=== PATIENT | male | born 1965 | race Caucasian/White ===

== ENCOUNTER 2017-08-13 22:12 | Inpatient (IN) | payer MEDICARE, MEDICAID ==
[~2017-08-13] VITALS: Ht 175.3 cm; Wt 85.7 kg
[2017-08-13 22:23] LABS: GLUCOSE,POINT OF CARE 93 MG/DL (70-110)
[2017-08-13] MEDS ORDERED: DULO60CA63 PO (22:30)
[2017-08-13] MEDS ORDERED: DULO30CA51 PO (22:30)
[2017-08-13] MEDS ORDERED: ARIP20TA10 PO (22:30)
[2017-08-13] MEDS ORDERED: BUSP10TA3 PO (22:30)
[2017-08-13] MEDS ORDERED: CARV12.530 PO (22:30)
[2017-08-13 23:04] LABS: BASOPHILS % (AUTO) 0.4 % (0.0-2.0); EOSINOPHILS % (AUTO) 3.4 % (1.0-6.0); HEMOGLOBIN 15.1 g/dL (13.5-17.5); LYMPHOCYTES # (AUTO) 2.9 K/uL (1.0-4.8); MEAN CORPUSCULAR VOLUME 94 fL (80-100); MONOCYTES # (AUTO) 0.7 K/uL (0.1-1.0); MONOCYTES % (AUTO) 8.2 % (2.0-9.0); NEUTROPHILS # (AUTO) 4.2 K/uL (1.8-7.7); PLATELET COUNT (AUTO) 183 K/uL (150-450); RED BLOOD CELL COUNT(AUTO) 4.56 MIL/uL (4.50-5.90); RED CELL DISTRIBUTION WIDTH 13.3 % (11.5-14.5)
[2017-08-13] MEDS ORDERED: HALOPERIDOL 5 MG TABLET PO PRN (23:15)
[2017-08-13] MEDS ORDERED: DiphenhydrAMINE HCL 25 MG CAPSULE PO ONE (23:15)
[2017-08-13] MEDS ORDERED: LORazepam 1 MG TABLET PO ONE (23:15)
[2017-08-13] MEDS ORDERED: HALOPERIDOL 5 MG TABLET PO ONE (23:15)
[2017-08-13 23:20] LABS: ANION GAP 10 mmol/L (8-16); CARBON DIOXIDE 26 mmol/L (22-29); CHLORIDE 102 mmol/L (98-107); CREATININE 0.71 mg/dL (0.60-1.30); GLOMERULAR FILTR. RATE CALC > 60 mL/min (>60); GLUCOSE,RANDOM 103 mg/dL (70-110); POTASSIUM 3.8 mmol/L (3.5-5.1); SODIUM SERUM 138 mmol/L (136-145); UREA NITROGEN, BLOOD 11 mg/dL (7-18)
[2017-08-13 23:26] LABS: ALANINE AMINOTRANSFERASE 23 U/L (12-78); ALBUMIN 3.8 g/dL (3.4-5.0); ALKALINE PHOSPHATASE 95 U/L (46-116); ASPARTATE AMINOTRANSFERASE 14 U/L (15-37); BILIRUBIN,TOTAL 0.3 mg/dL (0.1-1.0); TOTAL PROTEIN, SERUM 7.5 g/dL (6.4-8.2)
[2017-08-13 23:27] LABS: AMPHET/METH SCREEN,URINE NEGATIVE (NEGATIVE); BARBITURATE SCREEN, URINE NEGATIVE (NEGATIVE); BENZODIAZEPINES SCREEN,URINE NEGATIVE (NEGATIVE); CANNABINOID SCREEN,URINE NEGATIVE (NEGATIVE); COCAINE SCREEN,URINE NEGATIVE (NEGATIVE); METHADONE SCREEN, URINE NEGATIVE (NEGATIVE); OPIATE SCREEN,URINE NEGATIVE (NEGATIVE)
[2017-08-13 23:30] LABS: PHENCYCLIDINE SCREEN,URINE NEGATIVE (NEGATIVE)
[2017-08-14 00:11] LABS: APPEARANCE,URINE CLEAR (CLEAR); BILIRUBIN,URINE NEGATIVE (NEGATIVE); GLUCOSE, URINE (UA) NEGATIVE (NEGATIVE); KETONES,URINE NEGATIVE (NEGATIVE); LEUKOCYTE ESTERASE ,URINE NEGATIVE (NEGATIVE); NITRATE,URINE NEGATIVE (NEGATIVE); OCCULT BLOOD,URINE NEGATIVE (NEGATIVE); PH,URINE 6.5 (5.0-8.0); PROTEIN,URINE NEGATIVE (NEGATIVE)
[2017-08-14 00:19] LABS: CHOL/HDL RATIO 3.3 (4.2-7.3); CHOLESTEROL 154 mg/dL (131-200); HDL CHOLESTEROL 47 mg/dL (40-60); LDL CHOL (CALC.) 80 mg/dL (0-130); TRIGLYCERIDES 137 mg/dL (15-150)
[2017-08-14 00:41] LABS: THYROID STIMULATING HORMONE 3.56 uIU/mL (0.36-3.74)
[2017-08-14 01:09] LABS: INFLUENZA TYPE A NEGATIVE FOR TYPE A (NEGATIVE); INFLUENZA TYPE B NEGATIVE FOR TYPE B (NEGATIVE)
[2017-08-14 03:21] VITALS: BP 120/80
[2017-08-14] MEDS: LORazepam 2 MG TABLET PO PRN ×2 (03:37→10:00)
[2017-08-14] MEDS: ZOLPIDEM TARTRATE 10 MG TABLET PO PRN (03:37)
[2017-08-14] MEDS ORDERED: INFLUENZA VIRUS VACCINE QVS 2017-18 (3YR+)/PF 60 MCG/0.5 ML SYRINGE IM ONE (06:15)
[2017-08-14] MEDS ORDERED: PNEUMOCOCCAL VACCINE POLYVALENT 0.5 ML VIAL [PPSV23] IM ONE (06:15)
[2017-08-14 09:42] VITALS: BP 127/65
[2017-08-14] MEDS ORDERED: PETROLATUM,WHITE 71 GM JELLY TP PRN (09:45)
[2017-08-14] MEDS ORDERED: BENZOCAINE/MENTHOL LOZENGE MM PRN (09:45)
[2017-08-14] MEDS ORDERED: MAGNESIUM HYDROXIDE SUSPENSION 30 ML UDCUP PO PRN (09:45)
[2017-08-14] MEDS ORDERED: BACITRACIN 28.4 GM OINTMENT TP PRN (09:45)
[2017-08-14] MEDS ORDERED: CloNIDine HCL 0.1 MG TABLET PO PRN (09:45)
[2017-08-14] MEDS ORDERED: ACETAMINOPHEN 325 MG TABLET PO PRN (09:45)
[2017-08-14] MEDS ORDERED: MAG HYDROX/AL HYDROX/SIMETH ES 30 ML SUSPENSION UDCUP PO PRN (09:45)
[2017-08-14] MEDS ORDERED: ALBUTEROL SULFATE HFA 90 MCG/PUFF 8 GM INHALER IH PRN (09:45)
[2017-08-14] MEDS ORDERED: LOPERAMIDE HCL 2 MG CAPSULE PO PRN (09:45)
[2017-08-14] MEDS ORDERED: ONDANSETRON HCL 4 MG TABLET PO PRN (09:45)
[2017-08-14] MEDS: ARIPiprazole 10 MG TABLET PO SCH (15:24)
[2017-08-14] MEDS: DULoxetine HCL 60 MG CAPSULE PO SCH (15:48)
[2017-08-14] MEDS: CARVEDILOL 3.125 MG TABLET PO SCH (16:34)
[2017-08-14] MEDS: BusPIRone HCL 10 MG TABLET PO SCH (16:34)
[2017-08-14 16:41] VITALS: BP 130/79
[2017-08-15 04:51] VITALS: BP 103/73
[2017-08-15] MEDS: IBUPROFEN 600 MG TABLET PO PRN (04:54)
[2017-08-15 05:34] VITALS: BP 121/75
[2017-08-15] MEDS: LORazepam 2 MG TABLET PO PRN ×2 (05:43→16:41)
[2017-08-15] MEDS: ARIPiprazole 10 MG TABLET PO SCH (08:25)
[2017-08-15] MEDS: DULoxetine HCL 60 MG CAPSULE PO SCH (08:25)
[2017-08-15] MEDS: BusPIRone HCL 10 MG TABLET PO SCH ×3 (08:25→16:40)
[2017-08-15] MEDS: CARVEDILOL 3.125 MG TABLET PO SCH ×2 (08:25→16:41)
[2017-08-15 08:34] VITALS: BP 101/72
[2017-08-15] MEDS: NICOTINE 21 MG/24 HOUR PATCH TD SCH (10:59)
[2017-08-15 16:18] VITALS: BP 113/72
[2017-08-15] MEDS: ZOLPIDEM TARTRATE 10 MG TABLET PO PRN (21:40)
[2017-08-16 00:20] VITALS: BP 109/80
[2017-08-16] MEDS: LORazepam 2 MG TABLET PO PRN ×2 (02:24→16:38)
[2017-08-16 05:47] VITALS: BP 126/85
[2017-08-16] MEDS: IBUPROFEN 600 MG TABLET PO PRN ×3 (06:05→16:38)
[2017-08-16] MEDS: DULoxetine HCL 60 MG CAPSULE PO SCH (08:06)
[2017-08-16] MEDS: BusPIRone HCL 10 MG TABLET PO SCH ×3 (08:06→16:13)
[2017-08-16] MEDS: ARIPiprazole 10 MG TABLET PO SCH (08:06)
[2017-08-16] MEDS: NICOTINE 21 MG/24 HOUR PATCH TD SCH (08:06)
[2017-08-16] MEDS: CARVEDILOL 3.125 MG TABLET PO SCH ×2 (08:06→16:13)
[2017-08-16 09:28] VITALS: BP 118/73
[2017-08-16 16:19] VITALS: BP 114/72
[2017-08-17 00:10] VITALS: BP 109/69
[2017-08-17] MEDS: LORazepam 2 MG TABLET PO PRN ×2 (05:41→15:11)
[2017-08-17] MEDS: IBUPROFEN 600 MG TABLET PO PRN ×2 (06:13→15:11)
[2017-08-17 08:41] VITALS: BP 126/57
[2017-08-17] MEDS: DULoxetine HCL 60 MG CAPSULE PO SCH (08:41)
[2017-08-17] MEDS: CARVEDILOL 3.125 MG TABLET PO SCH ×2 (08:41→16:55)
[2017-08-17] MEDS: ARIPiprazole 10 MG TABLET PO SCH (08:41)
[2017-08-17] MEDS: NICOTINE 21 MG/24 HOUR PATCH TD SCH (08:41)
[2017-08-17] MEDS: BusPIRone HCL 10 MG TABLET PO SCH ×3 (08:41→16:55)
[2017-08-17 15:11] VITALS: BP 119/72
[2017-08-17 16:13] VITALS: BP 119/77
[2017-08-17] MEDS: ZOLPIDEM TARTRATE 10 MG TABLET PO PRN (22:06)
[2017-08-18] MEDS: IBUPROFEN 600 MG TABLET PO PRN ×2 (02:05→10:36)
[2017-08-18 02:06] VITALS: BP 134/79
[2017-08-18 03:06] VITALS: BP 134/79
[2017-08-18] MEDS: LORazepam 2 MG TABLET PO PRN (08:37)
[2017-08-18] MEDS: BusPIRone HCL 10 MG TABLET PO SCH ×2 (08:37→12:26)
[2017-08-18] MEDS: ARIPiprazole 10 MG TABLET PO SCH (08:37)
[2017-08-18] MEDS: CARVEDILOL 3.125 MG TABLET PO SCH (08:37)
[2017-08-18] MEDS: DULoxetine HCL 60 MG CAPSULE PO SCH (08:37)
[2017-08-18] MEDS: NICOTINE 21 MG/24 HOUR PATCH TD SCH (08:38)
[2017-08-18 08:51] VITALS: BP 125/73
[2017-08-18] MEDS ORDERED: BUSP10TA23 PO (12:19)
[2017-08-18] MEDS ORDERED: ARIP10TA8 PO (12:19)
[2017-08-18] MEDS ORDERED: DULO60CA44 PO (12:19)
[2017-08-18] MEDS ORDERED: CARV3 PO (12:19)
== END 2017-08-18 13:30 | disposition home or self-care (01) | DRG 885 ==
LOC: EMS 22:15 → B2S 23:35
PROC: 3E0234Z Introduction of Serum, Toxoid and Vaccine into Muscle, Percutaneous Approach (ICD-10-PCS; principal; 2017-08-14)
DX: F25.1 Schizoaffective disorder, depressive type (principal); R45.851 Suicidal ideations; Z91.14 Patient's other noncompliance with medication regimen; F17.200 Nicotine dependence, unspecified, uncomplicated; F32.9 Major depressive disorder, single episode, unspecified; F41.9 Anxiety disorder, unspecified; G47.00 Insomnia, unspecified; I10 Essential (primary) hypertension; J44.9 Chronic obstructive pulmonary disease, unspecified; K21.9 Gastro-esophageal reflux disease without esophagitis; M19.90 Unspecified osteoarthritis, unspecified site; Z90.49 Acquired absence of other specified parts of digestive tract; Z88.0 Allergy status to penicillin; Z79.899 Other long term (current) drug therapy; Z23 Encounter for immunization
CPT/HCPCS: 82962; 84443; 87804; 90471; 99285; G0480

== ENCOUNTER 2017-08-28 11:18 | Inpatient (IN) | payer MEDICARE, MEDICAID ==
[~2017-08-28] VITALS: Ht 175.3 cm; Wt 89.4 kg
[~2017-08-28 11:18] MED LIST: ARIP10TA8 PO; BUSP10TA23 PO; CARV3 PO; DULO60CA44 PO
[2017-08-28] MEDS: BusPIRone HCL 10 MG TABLET PO SCH ×2 (13:00→17:13)
[2017-08-28 13:07] VITALS: BP 130/77
[2017-08-28] MEDS: HALOPERIDOL 5 MG TABLET PO PRN ×2 (13:36→18:52)
[2017-08-28 16:00] VITALS: BP 134/67
[2017-08-28] MEDS: LORazepam 2 MG TABLET PO PRN (17:13)
[2017-08-29 06:34] VITALS: BP 135/78
[2017-08-29 08:00] VITALS: BP 133/65
[2017-08-29 08:21] LABS: BASOPHILS # (AUTO) 0.03 K/uL (0.00-0.20); BASOPHILS % (AUTO) 0.4 % (0.0-2.0); EOSINOPHILS # (AUTO) 0.17 K/uL (0.00-0.70); EOSINOPHILS % (AUTO) 2.09 % (1.0-6.0); HEMATOCRIT 44.8 % (41-53); HEMOGLOBIN 14.9 g/dL (13.5-17.5); LYMPHOCYTES # (AUTO) 2.2 K/uL (1.0-4.8); LYMPHOCYTES % (AUTO) 27.5 % (22.0-44.0); MEAN CORPUSCULAR HEMOGLOBIN 32.3 pg (26.0-34.0); MEAN CORPUSCULAR HGB CONC 33.4 G/dL (31.0-37.0); MEAN CORPUSCULAR VOLUME 97 fL (80-100); MONOCYTES # (AUTO) 0.6 K/uL (0.1-1.0); MONOCYTES % (AUTO) 7.2 % (2.0-9.0); NEUTROPHILS # (AUTO) 5.1 K/uL (1.8-7.7); NEUTROPHILS % (AUTO) 62.9 % (40.0-70.0); PLATELET COUNT (AUTO) 197 K/uL (150-450); RED BLOOD CELL COUNT(AUTO) 4.63 MIL/uL (4.50-5.90); RED CELL DISTRIBUTION WIDTH 13.6 % (11.5-14.5)
[2017-08-29 09:17] LABS: ALANINE AMINOTRANSFERASE 27 U/L (12-78); ALBUMIN 3.7 g/dL (3.4-5.0); ALKALINE PHOSPHATASE 95 U/L (46-116); ANION GAP 7 mmol/L (8-16); ASPARTATE AMINOTRANSFERASE 15 U/L (15-37); BILIRUBIN,TOTAL 0.4 mg/dL (0.1-1.0); CALCIUM, TOTAL 8.9 mg/dL (8.8-10.5); CARBON DIOXIDE 30 mmol/L (22-29); CHLORIDE 100 mmol/L (98-107); CHOL/HDL RATIO 3.3 (4.2-7.3); CHOLESTEROL 189 mg/dL (131-200); CREATININE 0.67 mg/dL (0.60-1.30); FREE T4 (FREE THYROXINE) 0.67 ng/dL (0.76-1.46); GLOMERULAR FILTR. RATE CALC > 60 mL/min (>60); GLUCOSE,RANDOM 99 mg/dL (70-110); HDL CHOLESTEROL 57 mg/dL (40-60); LDL CHOL (CALC.) 102 mg/dL (0-130); SODIUM SERUM 137 mmol/L (136-145); THYROID STIMULATING HORMONE 0.86 uIU/mL (0.36-3.74); TOTAL PROTEIN, SERUM 7.6 g/dL (6.4-8.2); TRIGLYCERIDES 152 mg/dL (15-150); UREA NITROGEN, BLOOD 16 mg/dL (7-18)
[2017-08-29 10:08] LABS: HEMOGLOBIN A1C 5.4 % (4.5-6.2)
[2017-08-29] MEDS: DULoxetine HCL 60 MG CAPSULE PO SCH (10:09)
[2017-08-29] MEDS: BusPIRone HCL 10 MG TABLET PO SCH ×3 (10:09→16:48)
[2017-08-29] MEDS: HALOPERIDOL 5 MG TABLET PO PRN ×2 (10:09→16:48)
[2017-08-29] MEDS: LORazepam 2 MG TABLET PO PRN ×2 (10:09→16:48)
[2017-08-29] MEDS: ARIPiprazole 10 MG TABLET PO SCH (10:09)
[2017-08-29] MEDS ORDERED: ALBUTEROL SULFATE HFA 90 MCG/PUFF 8 GM INHALER IH PRN (10:15)
[2017-08-29] MEDS ORDERED: ACETAMINOPHEN 325 MG TABLET PO PRN (10:15)
[2017-08-29] MEDS ORDERED: ONDANSETRON HCL 4 MG TABLET PO PRN (10:15)
[2017-08-29] MEDS ORDERED: LOPERAMIDE HCL 2 MG CAPSULE PO PRN (10:15)
[2017-08-29] MEDS ORDERED: CloNIDine HCL 0.1 MG TABLET PO PRN (10:15)
[2017-08-29] MEDS ORDERED: MAGNESIUM HYDROXIDE SUSPENSION 30 ML UDCUP PO PRN (10:15)
[2017-08-29] MEDS ORDERED: BACITRACIN 28.4 GM OINTMENT TP PRN (10:15)
[2017-08-29] MEDS ORDERED: BENZOCAINE/MENTHOL LOZENGE MM PRN (10:15)
[2017-08-29] MEDS ORDERED: PETROLATUM,WHITE 71 GM JELLY TP PRN (10:15)
[2017-08-29] MEDS ORDERED: MAG HYDROX/AL HYDROX/SIMETH ES 30 ML SUSPENSION UDCUP PO PRN (10:15)
[2017-08-29] MEDS: NICOTINE 21 MG/24 HOUR PATCH TD SCH (10:57)
[2017-08-29] MEDS: CARVEDILOL 3.125 MG TABLET PO SCH ×2 (10:58→16:48)
[2017-08-29 16:18] VITALS: BP 126/64
[2017-08-29] MEDS: HYDROCORTISONE 0.5% 30 GM CREAM TP SCH (16:49)
[2017-08-29] MEDS: ZOLPIDEM TARTRATE 10 MG TABLET PO PRN (20:27)
[2017-08-30 01:02] VITALS: BP 130/79
[2017-08-30] MEDS: HALOPERIDOL 5 MG TABLET PO PRN ×2 (03:36→09:01)
[2017-08-30] MEDS: LORazepam 2 MG TABLET PO PRN ×3 (04:34→21:35)
[2017-08-30 08:00] VITALS: BP 116/69
[2017-08-30] MEDS: HYDROCORTISONE 0.5% 30 GM CREAM TP SCH ×2 (08:27→16:04)
[2017-08-30] MEDS: DULoxetine HCL 60 MG CAPSULE PO SCH (08:27)
[2017-08-30] MEDS: OMEGA-3/DHA/EPA/FISH OIL 1,000 MG CAPSULE PO SCH (08:27)
[2017-08-30] MEDS: CARVEDILOL 3.125 MG TABLET PO SCH ×2 (08:27→16:03)
[2017-08-30] MEDS: BusPIRone HCL 10 MG TABLET PO SCH ×3 (08:27→16:03)
[2017-08-30] MEDS: ARIPiprazole 10 MG TABLET PO SCH (08:27)
[2017-08-30] MEDS: NICOTINE 21 MG/24 HOUR PATCH TD SCH (08:27)
[2017-08-30 16:34] VITALS: BP 116/73
[2017-08-30] MEDS: ZOLPIDEM TARTRATE 10 MG TABLET PO PRN (21:31)
[2017-08-31 03:15] VITALS: BP 109/65
[2017-08-31] MEDS: HALOPERIDOL 5 MG TABLET PO PRN ×3 (03:17→17:39)
[2017-08-31] MEDS: LORazepam 2 MG TABLET PO PRN ×2 (03:17→16:38)
[2017-08-31 03:56] VITALS: BP 115/79
[2017-08-31] MEDS: IBUPROFEN 600 MG TABLET PO PRN (03:58)
[2017-08-31 08:08] VITALS: BP 128/68
[2017-08-31] MEDS: OMEGA-3/DHA/EPA/FISH OIL 1,000 MG CAPSULE PO SCH (09:14)
[2017-08-31] MEDS: BusPIRone HCL 10 MG TABLET PO SCH ×3 (09:14→16:38)
[2017-08-31] MEDS: ARIPiprazole 10 MG TABLET PO SCH (09:14)
[2017-08-31] MEDS: CARVEDILOL 3.125 MG TABLET PO SCH ×2 (09:14→16:38)
[2017-08-31] MEDS: DULoxetine HCL 60 MG CAPSULE PO SCH (09:14)
[2017-08-31] MEDS: NICOTINE 21 MG/24 HOUR PATCH TD SCH (09:16)
[2017-08-31] MEDS: HYDROCORTISONE 0.5% 30 GM CREAM TP SCH ×2 (09:17→16:38)
[2017-08-31 16:00] VITALS: BP 126/72
[2017-08-31] MEDS: ZOLPIDEM TARTRATE 10 MG TABLET PO PRN (20:29)
[2017-09-01] MEDS: HALOPERIDOL 5 MG TABLET PO PRN ×3 (00:36→16:32)
[2017-09-01] MEDS: LORazepam 2 MG TABLET PO PRN ×3 (00:36→16:32)
[2017-09-01] MEDS: IBUPROFEN 600 MG TABLET PO PRN ×2 (00:37→09:11)
[2017-09-01 00:39] VITALS: BP 129/78
[2017-09-01 08:00] VITALS: BP 121/73
[2017-09-01] MEDS: NICOTINE 21 MG/24 HOUR PATCH TD SCH (08:13)
[2017-09-01] MEDS: ARIPiprazole 10 MG TABLET PO SCH (08:13)
[2017-09-01] MEDS: DULoxetine HCL 60 MG CAPSULE PO SCH (08:14)
[2017-09-01] MEDS: HYDROCORTISONE 0.5% 30 GM CREAM TP SCH ×2 (08:14→16:32)
[2017-09-01] MEDS: BusPIRone HCL 10 MG TABLET PO SCH ×3 (08:14→16:32)
[2017-09-01] MEDS: OMEGA-3/DHA/EPA/FISH OIL 1,000 MG CAPSULE PO SCH (08:14)
[2017-09-01] MEDS: CARVEDILOL 3.125 MG TABLET PO SCH ×2 (08:14→16:32)
[2017-09-01 09:11] VITALS: BP 121/76
[2017-09-01 16:00] VITALS: BP 123/71
[2017-09-01] MEDS: ZOLPIDEM TARTRATE 10 MG TABLET PO PRN (20:51)
[2017-09-02 03:59] VITALS: BP 115/76
[2017-09-02] MEDS: IBUPROFEN 600 MG TABLET PO PRN (04:30)
[2017-09-02 08:33] VITALS: BP 124/70
[2017-09-02] MEDS: BusPIRone HCL 10 MG TABLET PO SCH (08:48)
[2017-09-02] MEDS: OMEGA-3/DHA/EPA/FISH OIL 1,000 MG CAPSULE PO SCH (08:48)
[2017-09-02] MEDS: LORazepam 2 MG TABLET PO PRN (08:48)
[2017-09-02] MEDS: ARIPiprazole 10 MG TABLET PO SCH (08:48)
[2017-09-02] MEDS: CARVEDILOL 3.125 MG TABLET PO SCH (08:48)
[2017-09-02] MEDS: HALOPERIDOL 5 MG TABLET PO PRN (08:48)
[2017-09-02] MEDS: DULoxetine HCL 60 MG CAPSULE PO SCH (08:48)
[2017-09-02] MEDS: HYDROCORTISONE 0.5% 30 GM CREAM TP SCH (08:56)
[2017-09-02] MEDS: NICOTINE 21 MG/24 HOUR PATCH TD SCH (08:56)
[2017-09-02] MEDS ORDERED: OMEG-135 PO (11:06)
== END 2017-09-02 11:45 | disposition home or self-care (01) | DRG 885 ==
LOC: B3A 12:27
DX: F25.1 Schizoaffective disorder, depressive type (principal); E78.5 Hyperlipidemia, unspecified; F17.200 Nicotine dependence, unspecified, uncomplicated; G47.00 Insomnia, unspecified; F41.9 Anxiety disorder, unspecified; I10 Essential (primary) hypertension; J44.9 Chronic obstructive pulmonary disease, unspecified; K21.9 Gastro-esophageal reflux disease without esophagitis; L30.9 Dermatitis, unspecified; Z79.899 Other long term (current) drug therapy; Z90.49 Acquired absence of other specified parts of digestive tract; Z88.0 Allergy status to penicillin
CPT/HCPCS: 83036; 84439; 84443; 87081